=== PATIENT | male | born 1935 | race Caucasian/White ===

== ENCOUNTER → 2019-07-25 11:22 | Outpatient (CLI) | payer MEDICARE, OTHER, SELFPAY ==
[2015-07-14 17:36] VITALS: BMI 32.1
[2019-07-25 14:18] LABS: Hemoglobin 13.2 g/dL (13.0-16.5); Mean Corp Hgb Conc 32.2 g/dL (32-36); Mean Corpuscular Hgb 32.2 pg (27.0-32.0); Mean Platelet Vol. 11.8 fl (6.2-12.0); Platelet Count 193 K/mm3 (150-450); RBC Distribution Width CV 13.2 % (11.6-14.6); RBC Distribution Width SD 48.3 fl (35.1-43.9); White Blood Count 7.8 K/mm3 (4.4-11.0)
== END ==
PROVIDERS: Family Provider Family Medicine; PCP Family Medicine; Referring Provider Internal Medicine Gastroenterology; Visit Provider Internal Medicine Gastroenterology
DX: K62.5 Hemorrhage of anus and rectum (principal)
CPT/HCPCS: 36415; 85027

== ENCOUNTER 2020-09-26 09:00 | Outpatient (RCR) | payer MEDICARE, SELFPAY ==
[2015-07-14 17:36] VITALS: BMI 32.1
== END 2020-09-26 23:59 ==
LOC: IMMUN 09:00
PROVIDERS: PCP Family Medicine; Visit Provider Family Medicine
DX: Z23 Encounter for immunization (principal)
CPT/HCPCS: 0011A; 0012A

== ENCOUNTER → 2021-06-01 08:50 | Outpatient (CLI) | payer MEDICARE, SELFPAY ==
--- NOTE | 2021-06-01 09:00 | RAD_ITS ---
STUDY: X-RAY - ESOPHAGUS (BARIUM SWALLOW) WITH FLUOROSCOPY REASON FOR EXAM: Male, 85 years old. DYSPHAGIA TECHNIQUE: 23 view(s) of the esophagus were obtained following swallowing of barium. FLUOROSCOPY TIME (if supplied): (32 seconds) minutes/seconds COMPARISON: None. FINDINGS: There is no demonstrated esophageal foreign body. 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 Normal gastroesophageal junction, without a demonstrated hiatal hernia. The patient ingested a 12 mm tablet of barium. The tablet is trapped within the Zenker''s diverticulum. There is atherosclerotic calcification of the aortic arch with tortuosity of the descending aorta. Normal visualized pulmonary parenchyma. There are diffuse degenerative changes of the visualized thoracic spine. RAD/Esophagus Dual Contrast IMPRESSION: There is a 6 mm x 3.6 mm in diameter diverticulum at the origin of the esophagus along its medial aspect. The ingested 12 mm tablet of barium is trapped within the diverticulum. Electronically Signed: Joe Cast MD at 9:52 EDT , Service support ,
== END ==
PROVIDERS: PCP Family Medicine; Referring Provider Otolaryngology; Visit Provider Otolaryngology
DX: R13.10 Dysphagia, unspecified (principal)
CPT/HCPCS: 74221

== ENCOUNTER 2021-12-04 21:34 | Inpatient (IN) | payer MEDICARE, OTHER, SELFPAY ==
[2021-12-04 21:35] VITALS: BP 106/66; PULSE 103; RESP 16; TEMP 36.6; O2SAT 99; BMI 25.0
[2021-12-04 22:29] VITALS: PULSE 49; RESP 15; O2SAT 98
--- NOTE | 2021-12-04 22:56 | CT_ITS ---
We are attempting to reach an attending provider to discuss findings. An addendum with communication details will be sent when the communication is complete. STUDY: CT ABDOMEN AND PELVIS WITHOUT CONTRAST REASON FOR EXAM: Male, 86 years old. abd pain RADIATION DOSAGE (If Supplied By Facility): CTDIvol = ( 13.11 ) mGy, DLP = ( 686.80 ) mGycm TECHNIQUE: Transaxial images were obtained from the dome of the diaphragm to the symphysis pubis with oral contrast, and without intravenous contrast. Sagittal and coronal images were reconstructed. Individualized dose optimization techniques were used for this CT. COMPARISON: None. FINDINGS: Bibasilar atelectasis. Moderate coronary artery calcification. Liver is unremarkable on this nonenhanced scan. Normal gallbladder and extrahepatic biliary system. Normal spleen. Pancreas is markedly atrophic/fatty. No findings of acute pancreatitis. Normal bilateral adrenal glands. Normal size kidneys. Nonspecific perirenal stranding. No hydronephrosis or obstructing ureteral stone. Urinary bladder is unremarkable. A few small renal parapelvic cysts are incidentally noted, and require no follow-up. Stomach is filled with enteric contrast and gas. No gastric mural thickening or periduodenal inflammatory changes. Proximal small bowel loops are normal in caliber. More distal small bowel loops within the pelvis are mildly distended, and measure up to 3.8 cm in transverse diameter. These distended small bowel loops contain air-fluid levels. The terminal ileum is decompressed. Zone of transition probably lies within the right anterior-lateral pelvis with the small bowel abuts the anterior abdominal wall, suggestive of an adhesion. No small bowel volvulus is noted. The colon is normal in caliber. Scattered colonic diverticula are present without evidence for acute diverticulitis. No pneumatosis or extraluminal air is identified. No ascites. Small fat-filled inguinal hernias are present, larger on the left. There is also a small lobulated fat-filled periumbilical hernia. Abdominal aorta is calcific and is normal in caliber. No AAA. 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 Mildly prominent prostate gland measuring 5.3 cm in transverse diameter. Thoracolumbar degenerative disc disease. No lytic osseous lesion or other acute osseous abnormality. CT/Abdomen/Pel W ORAL Cont Only IMPRESSION: Findings of a low-grade/incomplete distal small bowel obstruction, with zone of transition within the right anterior pelvis. Colonic diverticulosis without evidence for acute diverticulitis. Nonstandard communication protocol initiated, level 2. Electronically Signed: Casey Dudley MD at 3:25 EDT ,
[2021-12-04] MEDS: Ondansetron 4 MG/2 ML Vial IV (23:39)
[2021-12-04] MEDS: Morphine 2 MG/ML Syringe IV (23:39)
[2021-12-04 23:43] LABS: Absolute Lymphocyte Count 1.33 X10^3/uL (0.83-4.51); Absolute Neutrophil Count 5.9 X10^3/uL (2.0-7.7); Basophil# 0.01 X10^3/uL; Basophil% 0.1 % (0-1); Eosinophil# 0.11 X10^3/uL; Eosinophils% 1.3 % (0-5); Hematocrit 45.1 % (40-54); Hemoglobin 15.1 g/dL (13.0-16.5); Lymphocyte # 1.33 X10^3/ul (0.83-4.51); Lymphocyte % 16.3 % (19-41); Mean Corp Hgb Conc 33.5 g/dL (32-36); Mean Corpuscular Hgb 32.6 pg (27.0-32.0); Mean Corpuscular Volume 97.4 fL (80-94); Mean Platelet Vol. 10.5 fl (6.2-12.0); Monocyte# 0.84 X10^3/uL; Monocyte% 10.3 % (0-10); NRBC Flagged by Analyzer 0 % (0-5); Neutrophil # 5.86 X10^3/uL (2.7-7.7); Neutrophil % 71.8 % (47-70); Platelet Count 259 K/mm3 (150-450); RBC Distribution Width CV 13.6 % (11.6-14.6); RBC Distribution Width SD 49.1 fl (35.1-43.9); Red Blood Count 4.63 M/mm3 (4.6-6.2); White Blood Count 8.2 K/mm3 (4.4-11.0)
[2021-12-04 23:55] LABS: AST(SGOT) 22 U/L (15-37); Alanine Aminotransfer ALT/SGPT 29 U/L (16-61); Albumin, Serum 3.6 g/dL (3.2-5.0); Alkaline Phosphatase 93 U/L (45-117); BUN 33 mg/dL (7-18); BUN/Creat Ratio 27.7 RATIO (10-20); Bilirubin, Direct 0.35 mg/dL (0.00-0.30); Calcium,Total 9.4 mg/dL (8.5-10.1); Chloride 105 mmol/L (98-107); Creatinine, Serum 1.19 mg/dL (0.70-1.30); EST Glomerular Filtration Rate 61 mL/min (>60); Est Glom Filt Rate - Afr Amer 74 mL/min (>60); Globulin 4.2 g/dL (2.2-4.2); Glucose 230 mg/dL (74-106); Lipase 19 U/L (73-393); Potassium 4.6 mmol/L (3.5-5.1); Protein, Total 7.8 g/dL (6.4-8.2); Sodium Level 136 mmol/L (136-145)
[2021-12-04 23:56] LABS: Anion Gap 6 (5-15)
[2021-12-05] VITALS (10 sets, daily range): BP systolic 104–134; BP diastolic 51–79; PULSE 78–87; RESP 16–18; TEMP 36.6–37.1; O2SAT 92–97; BMI 25.0
[2021-12-05] MEDS: Ondansetron 4 MG/2 ML Vial IV (01:51)
[2021-12-05] MEDS: Morphine 2 MG/ML Syringe IV (03:59)
--- NOTE | 2021-12-05 04:08 | EDS_ITS ---
HPI History of Present Illness Chief Complaint: Nausea/Vomiting/Diarrhea Narrative Narrative: Patient is 86-year-old male with history of hypertension hyperlipidemia and diabetes. He states that he felt like his stomach was off night. He states he went to bed and woke up around 4 AM Tuesday morning and had 2-3 bouts of vomiting as well as 1-2 bouts of loose stool. He states that all day Tuesday he had generalized abdominal discomfort with nausea and tried to eat in the evening and had recurrent vomiting after doing so. Secondary to this he presents to the hospital for evaluation. He denies any known sick contacts. He denies any fevers or chills [facility] Medical History (Updated 12/05/21 @ 04:[address] Breanna Bunch, DO) Coronary artery disease Diabetes Hypertension Myocardial infarct Home Medications Fish Oil 1 ea PO QHS 06/30/15 [History Last Taken Unknown] Therems-M 1 tab PO DAILY 06/30/15 [History Last Taken 07/14/15] acetaminophen [Tylenol] 650 mg PO 4X/DAY PRN PRN 06/30/15 [History Last Taken 07/14/15] ascorbic acid (vitamin C) [Vitamin C] 500 mg PO DAILY@0800 06/30/15 [History Last Taken Unknown] aspirin 81 mg PO DAILY@0800 06/30/15 [History Last Taken Unknown] atorvastatin 40 mg PO QHS 06/30/15 [History Last Taken 07/13/15] calcium carbonate 600 mg PO DAILY 06/30/15 [History Last Taken Unknown] glipizide 5 mg PO QHS 06/30/15 [History Last Taken 07/13/15] glucosamine-chondroitin 1 ea PO DAILY 06/30/15 [History Last Taken Unknown] losartan 25 mg PO QHS 06/30/15 [History Last Taken 07/13/15] metoprolol succinate 25 mg PO DAILY 06/30/15 [History Last Taken 07/14/15] vitamin E 400 unit PO DAILY 06/30/15 [History Last Taken Unknown] sennosides-docusate sodium [Stool Softener-Stimulant Laxat] 2 tab PO BID #0 tablet 07/13/15 [Rx Last Taken 07/14/15] Ferrex 150 Plus 150 mg PO DAILYCM #0 capsule 07/24/15 [Rx Last Taken Unknown] dapagliflozin [Farxiga] 5 mg PO DAILY 12/04/21 [History Last Taken Unknown] metformin 500 mg PO DAILY 12/04/21 [History Last Taken Unknown] Allergy/AdvReac Type Severity Reaction Status Date / Time Iodinated Contrast Media [CT] Allergy Hives Verified 12/04/21 21:37 Penicillins Allergy Hives Verified 12/04/21 21:37 Sulfa (Sulfonamide Allergy Itching Verified 12/04/21 21:37 Antibiotics) Surgical History (Updated 12/04/21 @ 22:33 by Vitor Laws) History of appendectomy History of bilateral knee replacement History of coronary artery stent placement Social History Smoking Status: Never smoker ROS ROS ED Constitutional Constitutional ED: Denies chills or fever(s) ENT ENT ED: Denies sore throat Cardiovascular Cardiovascular: Denies chest pain Respiratory/Chest Respiratory/Chest: Denies cough or dyspnea Gastrointestinal Gastrointestinal: Reports abdominal pain, diarrhea, nausea and vomiting Genitourinary Genitourinary ED: Denies dysuria Musculoskeletal Musculoskeletal: Denies back pain or myalgias Integumentary Denies rash Neurologic Neurologic: Denies headache(s) Hematologic/Lymphatic Hematologic/Lymphatic: Denies easy bleeding or easy bruising EXAM Physical Exam Const Vital Signs: 12/04/21 21:35 12/04/21 22:29 12/05/21 01:55 Temperature 97.8 F Temperature Source Temporal Pulse Rate 103 H 49 L 85 Respiratory Rate 16 15 18 Blood Pressure 106/66 113/63 Blood Pressure Mean 79 79 Pulse Ox 99 98 95 Oxygen Delivery Method Room Air Room Air 12/05/21 03:34 Temperature Temperature Source Pulse Rate 87 Respiratory Rate 18 Blood Pressure 134/79 H Blood Pressure Mean 97 Pulse Ox 97 Oxygen Delivery Method Room Air Positive well nourished and well developed General Appearance ED: well developed HEENT Reports dry mucous membranes Mouth ED: Yes dry mucous membranes Mouth: dry mucous membranes Eyes PERRL and EOMs intact bilaterally Neck supple Resp normal respiratory effort and clear to auscultation bilaterally Cardio regular rate and regular rhythm Rate: other Other Details: Annual pulses are +2-4 bilaterally are equal and symmetric GI GI Narrative: Abdomen is soft but slightly distended and bowel sounds are overactive. There is a reducible ventral hernia noted. There is mild increased tympany. No voluntary guarding or rigidity no pulsatile mass Palpation: soft Extremity normal to inspection Neuro oriented x3 and CN's II-XII intact bilaterally Sensorium / Orientation: alert Motor Exam: strength 5/5 throughout Psych mental status grossly normal Skin no rashes or lesions noted Skin Narrative: Skin turgor slightly increased MDM MDM MDM Narrative Medical decision making narrative: Patient presented to the ER afebrile with stable vitals. He had slight distention on his abdominal exam with a remote history of acute appendicitis requiring surgical removal. He stated he had a few loose bowel movements when symptoms began which goes against a bowel obstruction but as he is distended there is still concern for this I elected perform basic laboratory studies with a CT scan. Patient has an allergy to iodine contrast so therefore just oral contrast was given. Blood work reveals no acute findings but CT scan does show changes consistent with an incomplete small bowel obstruction with zone of transition in the right lower quadrant consistent with scar tissue from his previous appendectomy. I discussed the case with general surgery and they do not feel he needs an NG tube as he is not having persistent bouts of vomiting. At this time as he does not have a surgical abdomen they recommend admission to medicine service because of his other comorbidities. Therefore they were contacted and they agreed to accept the admission at this time. Lab Data Attestation: I reviewed the patient's lab results. Labs: Laboratory Results - last 24 hr 12/04/21 12/04/21 23:24 23:24 WBC 8.2 RBC 4.63 Hgb 15.1 Hct 45.1 MCV 97.4 H MCH 32.6 H MCHC 33.5 RDW Std Deviation 49.1 H RDW Coeff of Delvis 13.6 Plt Count 259 MPV 10.5 Immature Gran % (Auto) 0.200 Neut % (Auto) 71.8 H Lymph % (Auto) 16.3 L [place] % (Auto) 10.3 H Eos % (Auto) 1.3 Baso % (Auto) 0.1 Absolute Neuts (auto) 5.9 Absolute Lymphs (auto) 1.33 Nucleated RBC % 0 Sodium 136 Potassium 4.6 Chloride 105 Carbon Dioxide 25.0 Anion Gap 6 BUN 33 H Creatinine 1.19 Estim Creat Clear Calc 48.00 Est GFR (MDRD) Af Amer 74 Est GFR (MDRD) Non-Af 61 BUN/Creatinine Ratio 27.7 H Glucose 230 H Calcium 9.4 Total Bilirubin 1.80 H Direct Bilirubin 0.35 H AST 22 ALT 29 Alkaline Phosphatase 93 Total Protein 7.8 Albumin 3.6 Globulin 4.2 Lipase 19 L Radiography Diagnostic Testing: Clinical Impression(s) from Imaging Studies Abdomen CT 12/04/21 22:56 IMPRESSION: Findings of a low-grade/incomplete distal small bowel obstruction, with zone of transition within the right anterior pelvis. Colonic diverticulosis without evidence for acute diverticulitis. Nonstandard communication protocol initiated, level 2. Electronically Signed: Casey Dudley MD at 3:25 EDT , ADDENDUM: 12/05/21 0341 IMPRESSION: Findings of a low-grade/incomplete distal small bowel obstruction, with zone of transition within the right anterior pelvis. Colonic diverticulosis without evidence for acute diverticulitis. Nonstandard communication protocol initiated, level 2. N.B. : The above Results were Read Back by Casey Dudley MD to BREANNA BUNCH DO, and understanding confirmed on 12/05/2021 03:35:04 (ET). Electronically Signed: Casey Dudley MD at 3:25 EDT , ADDENDUM: 12/05/21 0343 Discharge Plan Dx/Rx/DC Orders Clinical Impression: Small bowel obstruction, Type II diabetes mellitus, Hypertension, Hyperlipidemia Disposition Disposition: Acute Care [facility]
[2021-12-05] MEDS: 0.9% Normal Saline 1,000 ML 125 ML IV (04:15)
--- NOTE | 2021-12-05 04:27 | HP.PCM.HOS_ITS ---
HPI - General General Date of Admission: 12/05/21 HPI Narrative VIRGINIE PATEL, is a 86 M who presents to the hospital with nausea vomiting and some diarrhea. He states that for the last 2 months he has been having intermittent issues with this however yesterday he started feeling he had an upset stomach and he threw up twice. He is had an episode of diarrhea yesterday morning but then has not had a bowel movement has not been passing any gas. In the ER he had a CT scan of his abdomen which demonstrated partial small bowel obstruction. Lab work and vital signs were all stable. [facility] Medical History (Updated 12/05/21 @ 04:[address] Breanna Asher, DO) Coronary artery disease Diabetes Hypertension Myocardial infarct Home Medications Fish Oil 1 ea PO QHS 06/30/15 [History Last Taken Unknown] Therems-M 1 tab PO DAILY 06/30/15 [History Last Taken 07/14/15] acetaminophen [Tylenol] 650 mg PO 4X/DAY PRN PRN 06/30/15 [History Last Taken 07/14/15] ascorbic acid (vitamin C) [Vitamin C] 500 mg PO DAILY@0800 06/30/15 [History Last Taken Unknown] aspirin 81 mg PO DAILY@0800 06/30/15 [History Last Taken Unknown] atorvastatin 40 mg PO QHS 06/30/15 [History Last Taken 07/13/15] calcium carbonate 600 mg PO DAILY 06/30/15 [History Last Taken Unknown] glipizide 5 mg PO QHS 06/30/15 [History Last Taken 07/13/15] glucosamine-chondroitin 1 ea PO DAILY 06/30/15 [History Last Taken Unknown] losartan 25 mg PO QHS 06/30/15 [History Last Taken 07/13/15] metoprolol succinate 25 mg PO DAILY 06/30/15 [History Last Taken 07/14/15] vitamin E 400 unit PO DAILY 06/30/15 [History Last Taken Unknown] sennosides-docusate sodium [Stool Softener-Stimulant Laxat] 2 tab PO BID #0 tablet 07/13/15 [Rx Last Taken 07/14/15] Ferrex 150 Plus 150 mg PO DAILYCM #0 capsule 07/24/15 [Rx Last Taken Unknown] dapagliflozin [Farxiga] 5 mg PO DAILY 12/04/21 [History Last Taken Unknown] metformin 500 mg PO DAILY 12/04/21 [History Last Taken Unknown] Allergy/AdvReac Type Severity Reaction Status Date / Time Iodinated Contrast Media [CT] Allergy Hives Verified 12/04/21 21:37 Penicillins Allergy Hives Verified 12/04/21 21:37 Sulfa (Sulfonamide Allergy Itching Verified 12/04/21 21:37 Antibiotics) Family History (Updated 12/05/21 @ 04:[address] Obi Dillon MD) Other Diabetes Surgical History (Updated 12/04/21 @ 22:33 by Vitor Laws) History of appendectomy History of bilateral knee replacement History of coronary artery stent placement Social History Smoking Status: Never smoker ROS Constitutional Constitutional: Denies chills, fatigue, fever(s) or malaise Eyes Eyes: Denies blurry vision ENT HEENT: Denies headache(s) or nasal discharge Cardiovascular Cardiovascular: Denies chest pain, dyspnea on exertion or syncope Respiratory/Chest Respiratory/Chest: Denies cough, shortness of breath at rest or shortness of breath with exertion Gastrointestinal Gastrointestinal: Reports diarrhea, nausea and vomiting; Denies constipation Genitourinary Genitourinary: Denies dysuria Neurologic Neurologic: Denies focal weakness, numbness or tremor(s) Psychiatric Psychiatric: Denies anxiety or depression Vital Signs Vital Signs Vital Signs: 12/04/21 21:35 12/04/21 22:29 12/05/21 01:55 Temperature 97.8 F Temperature Source Temporal Pulse Rate 103 H 49 L 85 Respiratory Rate 16 15 18 Blood Pressure 106/66 113/63 Blood Pressure Mean 79 79 Pulse Ox 99 98 95 Oxygen Delivery Method Room Air Room Air 12/05/21 03:34 12/05/21 04:17 Temperature 98.2 F Temperature Source Temporal Pulse Rate 87 87 Respiratory Rate 18 18 Blood Pressure 134/79 H 134/79 H Blood Pressure Mean 97 97 Pulse Ox 97 97 Oxygen Delivery Method Room Air Room Air Weight Weight: 185 lb Body Mass Index (BMI) 25.0 Physical Exam Const alert and oriented x3 General Appearance: cooperative HEENT normocephalic Mouth: dry mucous membranes Eyes PERRL, EOMs intact bilaterally and conjunctivae normal Neck supple and no JVD Resp normal respiratory effort, no retractions, no use of accessory muscles and clear to auscultation bilaterally Auscultation: Negative for crackles, rales, rhonchi or wheezes Cardio regular rate, regular rhythm, S1 normal heart sound, S2 normal heart sound and no murmurs GI soft to palpation; Negative for hepatosplenomegaly Inspection: abdominal distention Palpation: tender Extremity no clubbing, cyanosis or edema Skin no rashes or lesions noted Neuro no focal motor deficits and no sensory deficits noted Psych affect normal Appearance: appropriate Results Lab / Micro Data Result Diagrams: 12/04/21 23:24 12/04/21 23:24 Labs: Laboratory Results - last 24 hr 12/04/21 23:24: Sodium 136, Potassium 4.6, Chloride 105, Carbon Dioxide 25.0, Anion Gap 6, BUN 33 H, Creatinine 1.19, Estim Creat Clear Calc 48.00, Est GFR (MDRD) Af Amer 74, Est GFR (MDRD) Non-Af 61, BUN/Creatinine Ratio 27.7 H, Glucose 230 H, Calcium 9.4, Total Bilirubin 1.80 H, Direct Bilirubin 0.35 H, AST 22, ALT 29, Alkaline Phosphatase 93, Total Protein 7.8, Albumin 3.6, Globulin 4.2, Lipase 19 L 12/04/21 23:24: WBC 8.2, RBC 4.63, Hgb 15.1, Hct 45.1, MCV 97.4 H, MCH 32.6 H, MCHC 33.5, RDW Std Deviation 49.1 H, RDW Coeff of Delvis 13.6, Plt Count 259, MPV 10.5, Immature Gran % (Auto) 0.200, Neut % (Auto) 71.8 H, Lymph % (Auto) 16.3 L, [place] % (Auto) 10.3 H, Eos % (Auto) 1.3, Baso % (Auto) 0.1, Absolute Neuts (auto) 5.9, Absolute Lymphs (auto) 1.33, Nucleated RBC % [address] 12/04/21 22:56 IMPRESSION: Findings of a low-grade/incomplete distal small bowel obstruction, with zone of transition within the right anterior pelvis. Colonic diverticulosis without evidence for acute diverticulitis. Nonstandard communication protocol initiated, level 2. Electronically Signed: Casey Dudley MD at 3:25 EDT , ADDENDUM: 12/05/21 0341 IMPRESSION: Findings of a low-grade/incomplete distal small bowel obstruction, with zone of transition within the right anterior pelvis. Colonic diverticulosis without evidence for acute diverticulitis. Nonstandard communication protocol initiated, level 2. N.B. : The above Results were Read Back by Casey Dudley MD to BREANNA ASHER DO, and understanding confirmed on 12/05/2021 03:35:04 (ET). Electronically Signed: Casey Dudley MD at 3:25 EDT , ADDENDUM: 12/05/21 0343 Assessment & Plan Assessment/Plan (1) Small bowel obstruction: PLAN: 1. Small bowel obstruction ? We will make him n.p.o. ? Continue IV fluids ? We will consult surgery for management ? Morphine for pain as well as Zofran and Compazine for nausea ? CT did demonstrate a decent amount of stomach content therefore if he does have any episodes of emesis while here may need an NG tube placed 2. HTN/HLD ? Blood pressures ? Can continue with his home blood pressure medications even though he is n.p.o. ? We will hold his Lipitor and his while n.p.o. 3. DM2 ? We will hold all of his oral blood sugar medications ? Accu-Cheks AC at bedtime ? We will place him on sliding scale insulin every 6 hours secondary to his being n.p.o. That will make adjustments as necessary 4. Iron deficiency anemia ? Stable ? Will hold his iron replacement while n.p.o. from his small bowel patient DVT: SCDs Charges/Coding Visit Charges Inpatient E&M: 66131 Init Hosp L2
[2021-12-05] MEDS: 0.9% Normal Saline 1,000 ML 100 ML IV ×3 (06:20→22:28)
[2021-12-05] MEDS: Morphine 4 MG/ML Syringe IV (06:21)
[2021-12-05] MEDS: proCHLORPERazine 10 MG/2 ML Vial 5 MG IV (06:21)
[2021-12-05 06:50] LABS: Bedside Glucose 188 mg/dL (74-106)
--- NOTE | 2021-12-05 07:32 | PN.HOSP_ITS ---
Subjective Subjective Patient has past small amount of gas/flatus. No bowel movement for more than 24 hours. No nausea or vomiting. No fever. Patient feels abdominal distention. Objective Data Objective Data Vital Signs: Vital Signs Temp Pulse Resp BP Pulse Ox 98.2 F 87 16 118/51 L 92 12/05/21 05:17 12/05/21 05:17 12/05/21 05:31 12/05/21 05:17 12/05/21 05:17 Oxygen Delivery Method Room Air Weight: 184 lb 8 oz Body Mass Index (BMI) 25.0 Intake & Output: Intake and Output for Last 24 Hours 12/03/21 12/04/21 12/05/21 23:59 23:59 23:59 Intake Total 695.83 / 695.83 Balance 695.83 / 695.83 Lab / Micro Data Result Diagrams: 12/05/21 06:57 12/05/21 06:57 Labs: Laboratory Results - last 24 hr 12/04/21 23:24: Sodium 136, Potassium 4.6, Chloride 105, Carbon Dioxide 25.0, Anion Gap 6, BUN 33 H, Creatinine 1.19, Estim Creat Clear Calc 48.00, Est GFR (MDRD) Af Amer 74, Est GFR (MDRD) Non-Af 61, BUN/Creatinine Ratio 27.7 H, Glucose 230 H, Calcium 9.4, Total Bilirubin 1.80 H, Direct Bilirubin 0.35 H, AST 22, ALT 29, Alkaline Phosphatase 93, Total Protein 7.8, Albumin 3.6, Globulin 4.2, Lipase 19 L 12/04/21 23:24: WBC 8.2, RBC 4.63, Hgb 15.1, Hct 45.1, MCV 97.4 H, MCH 32.6 H, MCHC 33.5, RDW Std Deviation 49.1 H, RDW Coeff of Delvis 13.6, Plt Count 259, MPV 10.5, Immature Gran % (Auto) 0.200, Neut % (Auto) 71.8 H, Lymph % (Auto) 16.3 L, [place] % (Auto) 10.3 H, Eos % (Auto) 1.3, Baso % (Auto) 0.1, Absolute Neuts (auto) 5.9, Absolute Lymphs (auto) 1.33, Nucleated RBC % 0 12/05/21 06:42: POC Glucose 188 H Radiography Diagnostic Testing: Radiology Impression Abdomen CT 12/04/21 22:56 IMPRESSION: Findings of a low-grade/incomplete distal small bowel obstruction, with zone of transition within the right anterior pelvis. Colonic diverticulosis without evidence for acute diverticulitis. Assessment & Plan Assessment/Plan (1) Small bowel obstruction: PLAN: 86-year-old male admitted with low flatus/bowel movement for more than 24 hours prior to admission. Prior to that he was having nausea vomiting and intermittent diarrhea and upset stomach for 2 months 1. Distal incomplete small bowel obstruction: We will keep the patient NPO. General surgery is consulted. Continue IV fluid. Patient has passed flatus but has not passed bowel movement yet. CT abdomen Reviewed and agree with the report. Stomach and small bowel distended. Zone of transition within the right anterior pelvis. Colonic diverticulosis without evidence for acute diverticulitis. 2. Hypertension and dyslipidemia: Blood pressure normal range. Hold oral antihypertensive medications. Hold Lipitor ? 3. DM2 with mild hyperglycemia: Accu-Chek every 6 hourly while patient is n.p.o. and before meals and at bedtime only and is allowed, covered with Humalog sliding scale. 4. Iron deficiency anemia: Hemoglobin 12.4. DVT: SCDs Charges/Coding Visit Charges Inpatient E&M: 17647 Subs Hosp L2
[2021-12-05 07:34] LABS: Absolute Lymphocyte Count 1.65 X10^3/uL (0.83-4.51); Absolute Neutrophil Count 3.7 X10^3/uL (2.0-7.7); Basophil# 0.01 X10^3/uL; Basophil% 0.2 % (0-1); Eosinophil# 0.14 X10^3/uL; Eosinophils% 2.3 % (0-5); Hematocrit 37.2 % (40-54); Hemoglobin 12.4 g/dL (13.0-16.5); Lymphocyte # 1.65 X10^3/ul (0.83-4.51); Lymphocyte % 26.6 % (19-41); Mean Corp Hgb Conc 33.3 g/dL (32-36); Mean Corpuscular Hgb 32.6 pg (27.0-32.0); Mean Corpuscular Volume 97.9 fL (80-94); Mean Platelet Vol. 10.3 fl (6.2-12.0); Monocyte# 0.73 X10^3/uL; Monocyte% 11.8 % (0-10); NRBC Flagged by Analyzer 0 % (0-5); Neutrophil # 3.66 X10^3/uL (2.7-7.7); Neutrophil % 58.9 % (47-70); Platelet Count 193 K/mm3 (150-450); RBC Distribution Width CV 13.8 % (11.6-14.6); RBC Distribution Width SD 49.8 fl (35.1-43.9); White Blood Count 6.2 K/mm3 (4.4-11.0)
[2021-12-05 07:58] LABS: Anion Gap 6 (5-15); BUN 29 mg/dL (7-18); BUN/Creat Ratio 30.4 RATIO (10-20); Calcium,Total 8.3 mg/dL (8.5-10.1); Chloride 108 mmol/L (98-107); Creatinine, Serum 0.96 mg/dL (0.70-1.30); EST Glomerular Filtration Rate 79 mL/min (>60); Est Glom Filt Rate - Afr Amer 96 mL/min (>60); Glucose 198 mg/dL (74-106); Sodium Level 138 mmol/L (136-145)
[2021-12-05] MEDS: Metoprolol(XL)Succ 25 MG Tablet PO (09:59)
--- NOTE | 2021-12-05 11:01 | CON.PCM.SX_ITS ---
Assessment & Plan Assessment/Plan (1) Small bowel obstruction: PLAN: Believe the patient's overall condition has been improving. At the present time I do not feel that he is going to need an urgent surgery and I believe it is okay for him to chew on ice chips at this time. In addition he can have hard candy and chew gum if he has some. HPI Consult Data Date of Consult: 12/05/21 HPI Narrative HPI Narrative: VIRGINIE PATEL, is a 86 M who presents to the hospital with nausea vomiting and some diarrhea. He states that for the last 2 months he has been having intermittent issues with this however yesterday he started feeling he had an upset stomach and he threw up twice. He is had an episode of diarrhea yesterday morning but then has not had a bowel movement has not been passing any gas. In the ER he had a CT scan of his abdomen which demonstrated partial small bowel obstruction. Lab work and vital signs were all stable. Since being on the floor he states that he does feel better and he is passing flatus FOR[facility]LY [facility] Medical History Coronary artery disease Diabetes DVT (deep venous thrombosis) Hypertension Myocardial infarct Osteoporosis Home Medications Fish Oil 1 ea PO QHS 06/30/15 [History Last Taken Unknown] acetaminophen [Tylenol] 650 mg PO 4X/DAY PRN PRN 06/30/15 [History Last Taken 07/14/15] ascorbic acid (vitamin C) [Vitamin C] 500 mg PO DAILY@0800 06/30/15 [History Last Taken Unknown] aspirin 81 mg PO DAILY@0800 06/30/15 [History Last Taken Unknown] atorvastatin 40 mg PO QHS 06/30/15 [History Last Taken 07/13/15] calcium carbonate 600 mg PO DAILY 06/30/15 [History Last Taken Unknown] glipizide 10 mg PO DAILY 06/30/15 [History Last Taken 07/13/15] glucosamine-chondroitin 1 ea PO DAILY 06/30/15 [History Last Taken Unknown] losartan 25 mg PO QHS 06/30/15 [History Last Taken 07/13/15] metoprolol succinate 25 mg PO DAILY 06/30/15 [History Last Taken 07/14/15] vitamin E 400 unit PO DAILY 06/30/15 [History Last Taken Unknown] Ferrex 150 Plus 150 mg PO DAILYCM #0 capsule 07/24/15 [Rx Last Taken Unknown] metformin 500 mg PO BID 12/04/21 [History Last Taken Unknown] dulaglutide [Trulicity] 0.75 mg SUBCUT QWEEK 12/05/21 [History Last Taken Unknown] Allergy/AdvReac Type Severity Reaction Status Date / Time Iodinated Contrast Media [CT] Allergy Hives Verified 12/04/21 21:37 Penicillins Allergy Hives Verified 12/04/21 21:37 Sulfa (Sulfonamide Allergy Itching Verified 12/04/21 21:37 Antibiotics) Family History Other Diabetes Surgical History History of appendectomy History of bilateral knee replacement History of coronary artery stent placement Social History Smoking Status: Never smoker ROS Constitutional Constitutional: Denies chills, fatigue or fever(s) Cardiovascular Cardiovascular: Denies chest pain or dyspnea Respiratory/Chest Respiratory/Chest: Denies shortness of breath at rest Gastrointestinal Gastrointestinal: Reports diarrhea, nausea and vomiting Physical Exam Const alert, oriented x3 and no apparent distress General Appearance: cooperative HEENT normocephalic and head/scalp atraumatic Eyes PERRL and EOMs intact bilaterally Resp normal respiratory effort and clear to auscultation bilaterally Cardio Rate: regular rate Rhythm: regular rhythm GI soft to palpation and non-tender Inspection: abdominal distention Lab / Micro Data Result Diagrams: 12/05/21 06:57 12/05/21 06:57 Labs: Laboratory Results - last 24 hr 12/04/21 23:24: Sodium 136, Potassium 4.6, Chloride 105, Carbon Dioxide 25.0, Anion Gap 6, BUN 33 H, Creatinine 1.19, Estim Creat Clear Calc 48.00, Est GFR (MDRD) Af Amer 74, Est GFR (MDRD) Non-Af 61, BUN/Creatinine Ratio 27.7 H, Glucose 230 H, Calcium 9.4, Total Bilirubin 1.80 H, Direct Bilirubin 0.35 H, AST 22, ALT 29, Alkaline Phosphatase 93, Total Protein 7.8, Albumin 3.6, Globulin 4.2, Lipase 19 L 12/04/21 23:24: WBC 8.2, RBC 4.63, Hgb 15.1, Hct 45.1, MCV 97.4 H, MCH 32.6 H, MCHC 33.5, RDW Std Deviation 49.1 H, RDW Coeff of Delvis 13.6, Plt Count 259, MPV 10.5, Immature Gran % (Auto) 0.200, Neut % (Auto) 71.8 H, Lymph % (Auto) 16.3 L, [place] % (Auto) 10.3 H, Eos % (Auto) 1.3, Baso % (Auto) 0.1, Absolute Neuts (auto) 5.9, Absolute Lymphs (auto) 1.33, Nucleated RBC % 0 12/05/21 06:42: POC Glucose 188 H 12/05/21 06:57: WBC 6.2, RBC 3.80 L, Hgb 12.4 L, Hct 37.2 L, MCV 97.9 H, MCH 32.6 H, MCHC 33.3, RDW Std Deviation 49.8 H, RDW Coeff of Delvis 13.8, Plt Count 193, MPV 10.3, Immature Gran % (Auto) 0.200, Neut % (Auto) 58.9, Lymph % (Auto) 26.6, [place] % (Auto) 11.8 H, Eos % (Auto) 2.3, Baso % (Auto) 0.2, Absolute Neuts (auto) 3.7, Absolute Lymphs (auto) 1.65, Nucleated RBC % 0 12/05/21 06:57: Sodium 138, Potassium 4.0, Chloride 108 H, Carbon Dioxide 24.0, Anion Gap 6, BUN 29 H, Creatinine 0.96, Estim Creat Clear Calc 59.50, Est GFR (MDRD) Af Amer 96, Est GFR (MDRD) Non-Af 79, BUN/Creatinine Ratio 30.4 H, Glucose 198 H, Calcium 8.3 L Radiology Impression Abdomen CT 12/04/21 22:56 IMPRESSION: Findings of a low-grade/incomplete distal small bowel obstruction, with zone of transition within the right anterior pelvis. Colonic diverticulosis without evidence for acute diverticulitis. Nonstandard communication protocol initiated, level 2. Electronically Signed: Casey Dudley MD at 3:25 EDT , ADDENDUM: 12/05/21 0341 IMPRESSION: Findings of a low-grade/incomplete distal small bowel obstruction, with zone of transition within the right anterior pelvis. Colonic diverticulosis without evidence for acute diverticulitis. Nonstandard communication protocol initiated, level 2. N.B. : The above Results were Read Back by Casey Dudley MD to BREANNA ASHER DO, and understanding confirmed on 12/05/2021 03:35:04 (ET). Electronically Signed: Casey Dudley MD at 3:25 EDT , ADDENDUM: 12/05/21 [id number]
[2021-12-05 11:11] LABS: Bedside Glucose 170 mg/dL (74-106)
--- NOTE | 2021-12-05 15:30 | CASEMGMT ---
RN CM MANAGER LAUNDRY CM to room to meet with patient for initial transition planning/care coordination assessment. RN BETTIE introduced self and role at [facility].? Pt voices understanding and consents to assessment at this time.? Pt resting in bed in no distress at this time.? Pt is A/O at this time and answers all questions appropriately.?? Care providers, pharmacy, and demographics verified/updated at this time. PCP: KATIE Borden @ [facility] Specialists: [employer] [facility] @ [facility] in [place]--had 1st appt last week. Sees GI surgeon @ [facility]. Preferred Pharmacy: [facility] Insurance: [employer], [employer] Prescription Benefit:? Yes, [employer] LNOK: sonYoung Living Arrangements: Lives alone in 2-story home w/5 steps to enter. Bedroom on 2nd floor. Bathroom on both floors. Independent w/ADL's and IADL's. Pt states does well w/the stairs. Son lives approx 10 min away and is supportive. Transportation: Pt states drives self and states no transportation concerns at this time.? Son will take him home @ d/c DME: ?Has a functioning glucometer w/supplies. Has a walker available, but does not use. Denies need for further DME HHC/SNF: Hx TCU in 2015 after knee surgery and HHC. Denies need for HHC at this time and no needs identified. Pt wishes to return home and states has no concerns with going home at time of discharge.? ? Pt voices no further concerns/needs at this time.? Advised pt to ask for CM or nurse if any further questions/concerns/needs arise.? Voices understanding. PLAN: ?Home w/support of son and discharge plans in place. Sharon GUEVARA RN, CM
[2021-12-05 16:45] LABS: Bedside Glucose 143 mg/dL (74-106)
[2021-12-05] MEDS: Insulin Lispro 100 UNIT/ML INSULN.PEN SC (22:25)
[2021-12-05] MEDS: Losartan Potassium 25 MG Tablet PO (22:25)
[2021-12-05 22:51] LABS: Bedside Glucose 154 mg/dL (74-106)
[2021-12-06 03:37] VITALS: BP 126/59; PULSE 73; RESP 16; TEMP 36.8; O2SAT 96
[2021-12-06 06:40] LABS: Bedside Glucose 138 mg/dL (74-106)
[2021-12-06 08:29] VITALS: BP 124/55; PULSE 73; RESP 18; TEMP 36.9; O2SAT 92
[2021-12-06 08:32] VITALS: PULSE 73
[2021-12-06] MEDS: 0.9% Normal Saline 1,000 ML 100 ML IV (08:32)
[2021-12-06] MEDS: Metoprolol(XL)Succ 25 MG Tablet PO (08:32)
--- NOTE | 2021-12-06 08:56 | PCM.PN.SRG ---
Subjective Subjective Not complaining of any abdominal pain. Patient states that he has had significant flatus this morning. Objective Data Objective Data Abdomen is soft nontender nondistended Vital Signs: Vital Signs Temp Pulse Resp BP Pulse Ox 98.5 F 73 18 124/55 H 92 12/06/21 08:29 12/06/21 08:32 12/06/21 08:29 12/06/21 08:29 12/06/21 08:29 Oxygen Delivery Method Room Air Weight: 184 lb 8.007 oz Body Mass Index (BMI) 25.0 Intake & Output: Intake and Output for Last 24 Hours 12/04/21 12/05/21 12/06/21 23:59 23:59 23:59 Intake Total 2489.16 / 2489.16 1020 / 1020 Balance 2489.16 / 2489.16 1020 / 1020 Lab / Micro Data Result Diagrams: 12/05/21 06:57 12/05/21 06:57 Labs: Laboratory Results - last 24 hr 12/05/21 11:08: POC Glucose 170 H 12/05/21 16:30: POC Glucose 143 H 12/05/21 22:22: POC Glucose 154 H 12/06/21 06:30: POC Glucose 138 H Assessment & Plan Assessment/Plan (1) Small bowel obstruction: PLAN: Okay to advance diet. No surgical intervention is planned at this time.
[2021-12-06] MEDS: Bisacodyl 5 MG Tablet PO ×2 (09:45→14:24)
--- NOTE | 2021-12-06 10:50 | PCM.PN.HOSP ---
Subjective Subjective Follow-up for partial small bowel obstruction/ileus Patient is passing gas but not had bowel movement. Abdomen soft. No abdominal pain Objective Data Objective Data Vital Signs: Vital Signs Temp Pulse Resp BP Pulse Ox 98.5 F 73 18 124/55 H 92 12/06/21 08:29 12/06/21 08:32 12/06/21 08:29 12/06/21 08:29 12/06/21 08:29 Oxygen Delivery Method Room Air Weight: 184 lb 8.007 oz Body Mass Index (BMI) 25.0 Intake & Output: Intake and Output for Last 24 Hours 12/04/21 12/05/21 12/06/21 23:59 23:59 23:59 Intake Total 2489.16 / 2489.16 1020 / 1020 Balance 2489.16 / 2489.16 1020 / 1020 Lab / Micro Data Result Diagrams: 12/05/21 06:57 12/05/21 06:57 Labs: Laboratory Results - last 24 hr 12/05/21 11:08: POC Glucose 170 H 12/05/21 16:30: POC Glucose 143 H 12/05/21 22:22: POC Glucose 154 H 12/06/21 06:30: POC Glucose 138 H Physical Exam Narrative General: Alert, Oriented x3, Cooperative HEENT: Atraumatic, PERRLA, EOMI, Normocephalic Oral: No Gingival or Mucosal Lesions/ Ulcerations Neck: Supple, No JVD, Negative Carotid Bruits Lungs: Air entry diminished in bilateral lung bases. No crepitation/rhonchi Cardiovascular: Regular rate, Regular Rhythm, Normal S1, Normal S2, No murmurs Abdomen: Bowel Sounds high-pitched, gurgling sound seems fluid in the bowel. Soft, Non Tender, Non-Distended : No renal angle tenderness. No suprapubic tenderness. Extremities: No edema, Capillary Refill Less than 3 Seconds Skin: No rashes, No breakdown Musculoskeletal: No Tenderness to Palpation of Joints or Extremities Neurological: Cranial nerves II-XII grossly intact, DTR 2+/4 and Symmetrical, Neuro grossly intact Psych/Mental Status: Normal Affect, Appropriate Assessment & Plan Assessment/Plan (1) Small bowel obstruction: PLAN: 86-year-old male admitted with low flatus/bowel movement for more than 24 hours prior to admission. Prior to that he was having nausea vomiting and intermittent diarrhea and upset stomach for 2 months 1. Distal incomplete small bowel obstruction: We will keep the patient NPO. General surgery is consulted. Continue IV fluid. Patient has passed flatus but has not passed bowel movement yet. CT abdomen Reviewed and agree with the report. Stomach and small bowel distended. Zone of transition within the right anterior pelvis. Colonic diverticulosis without evidence for acute diverticulitis. 12/06: I called and discussed with Dr. Boateng and agreed for Dulcolax 5 mg p.o. Patient has distal incomplete small bowel obstruction and bowel sounds are present along with flatness. May be ileus. 2. Hypertension and dyslipidemia: Blood pressure normal range. Hold oral antihypertensive medications. Hold Lipitor ? 3. DM2 with mild hyperglycemia: Accu-Chek every 6 hourly while patient is n.p.o. and before meals and at bedtime only and is allowed, covered with Humalog sliding scale. Glucose in acceptable limit 4. Iron deficiency anemia: Hemoglobin 12.4. DVT: SCDs Charges/Coding Visit Charges Inpatient E&M: 97887 Subs Hosp L2
[2021-12-06 11:18] LABS: Absolute Lymphocyte Count 1.69 X10^3/uL (0.83-4.51); Absolute Neutrophil Count 5.5 X10^3/uL (2.0-7.7); Basophil# 0.01 X10^3/uL; Basophil% 0.1 % (0-1); Eosinophil# 0.09 X10^3/uL; Eosinophils% 1.1 % (0-5); Hematocrit 38.5 % (40-54); Hemoglobin 12.7 g/dL (13.0-16.5); Lymphocyte # 1.69 X10^3/ul (0.83-4.51); Lymphocyte % 20.8 % (19-41); Mean Corpuscular Hgb 32.8 pg (27.0-32.0); Mean Corpuscular Volume 99.5 fL (80-94); Mean Platelet Vol. 10.3 fl (6.2-12.0); Monocyte# 0.85 X10^3/uL; Monocyte% 10.5 % (0-10); NRBC Flagged by Analyzer 0 % (0-5); Neutrophil # 5.46 X10^3/uL (2.7-7.7); Neutrophil % 67.3 % (47-70); Platelet Count 186 K/mm3 (150-450); RBC Distribution Width CV 13.8 % (11.6-14.6); RBC Distribution Width SD 50.3 fl (35.1-43.9); Red Blood Count 3.87 M/mm3 (4.6-6.2); White Blood Count 8.1 K/mm3 (4.4-11.0)
[2021-12-06 11:31] LABS: Anion Gap 5 (5-15); BUN 18 mg/dL (7-18); BUN/Creat Ratio 20.1 RATIO (10-20); Calcium,Total 8.3 mg/dL (8.5-10.1); Chloride 113 mmol/L (98-107); Creatinine, Serum 0.89 mg/dL (0.70-1.30); EST Glomerular Filtration Rate 85 mL/min (>60); Est Glom Filt Rate - Afr Amer 103 mL/min (>60); Estimated Creatinine Clearance 64.18 ml/min; Glucose 185 mg/dL (74-106); Magnesium 1.8 mg/dL (1.6-2.6); Phosphorus 2.1 mg/dL (2.5-4.9); Potassium 3.9 mmol/L (3.5-5.1); Sodium Level 139 mmol/L (136-145)
[2021-12-06] MEDS: Insulin Lispro 100 UNIT/ML INSULN.PEN SC ×3 (12:24→21:30)
[2021-12-06 12:41] LABS: Bedside Glucose 208 mg/dL (74-106)
[2021-12-06 14:27] VITALS: BP 118/59; PULSE 81; RESP 18; TEMP 36.7; O2SAT 93
[2021-12-06 16:50] LABS: Bedside Glucose 160 mg/dL (74-106)
[2021-12-06 20:30] VITALS: BP 120/58; PULSE 72; RESP 16; TEMP 37.1; O2SAT 98
[2021-12-06] MEDS: Losartan Potassium 25 MG Tablet PO (20:31)
[2021-12-06 22:06] LABS: Bedside Glucose 211 mg/dL (74-106)
[2021-12-07 02:25] VITALS: BP 130/60; PULSE 77; RESP 16; TEMP 36.5; O2SAT 97
[2021-12-07 06:24] LABS: Absolute Neutrophil Count 5.1 X10^3/uL (2.0-7.7); Basophil# 0.01 X10^3/uL; Basophil% 0.1 % (0-1); Eosinophil# 0.11 X10^3/uL; Eosinophils% 1.3 % (0-5); Hemoglobin 12.3 g/dL (13.0-16.5); Lymphocyte % 27.3 % (19-41); Mean Corp Hgb Conc 33.2 g/dL (32-36); Mean Corpuscular Hgb 32.6 pg (27.0-32.0); Mean Corpuscular Volume 98.1 fL (80-94); Mean Platelet Vol. 10.8 fl (6.2-12.0); Monocyte# 0.87 X10^3/uL; Monocyte% 10.3 % (0-10); NRBC Flagged by Analyzer 0 % (0-5); Neutrophil % 60.5 % (47-70); Platelet Count 185 K/mm3 (150-450); RBC Distribution Width CV 13.4 % (11.6-14.6); RBC Distribution Width SD 48.8 fl (35.1-43.9); Red Blood Count 3.77 M/mm3 (4.6-6.2); White Blood Count 8.4 K/mm3 (4.4-11.0)
[2021-12-07] MEDS: Insulin Lispro 100 UNIT/ML INSULN.PEN SC ×2 (06:27→12:11)
[2021-12-07 06:36] LABS: Bedside Glucose 167 mg/dL (74-106)
[2021-12-07 06:49] LABS: Anion Gap 7 (5-15); BUN 13 mg/dL (7-18); BUN/Creat Ratio 15.5 RATIO (10-20); Calcium,Total 8.2 mg/dL (8.5-10.1); Chloride 110 mmol/L (98-107); Creatinine, Serum 0.84 mg/dL (0.70-1.30); EST Glomerular Filtration Rate 92 mL/min (>60); Est Glom Filt Rate - Afr Amer 112 mL/min (>60); Glucose 160 mg/dL (74-106); Potassium 3.6 mmol/L (3.5-5.1); Sodium Level 140 mmol/L (136-145)
[2021-12-07] MEDS: Glucerna Shake 120 ML LIQUID PO ×2 (08:20→12:10)
[2021-12-07 08:25] VITALS: BP 108/66; PULSE 65; RESP 16; TEMP 36.5; O2SAT 96
[2021-12-07 09:09] VITALS: PULSE 77
[2021-12-07] MEDS: Metoprolol(XL)Succ 25 MG Tablet PO (09:09)
--- NOTE | 2021-12-07 10:44 | PCM.PN.SRG ---
Subjective Subjective Passing flatus no abdominal pain Objective Data Objective Data Vital Signs: Vital Signs Temp Pulse Resp BP Pulse Ox 97.7 F L 77 16 108/66 96 12/07/21 08:25 12/07/21 09:09 12/07/21 08:25 12/07/21 08:25 12/07/21 08:25 Oxygen Delivery Method Room Air Weight: 184 lb 8.007 oz Body Mass Index (BMI) 25.0 Intake & Output: Intake and Output for Last 24 Hours 12/05/21 12/06/21 12/07/21 23:59 23:59 23:59 Intake Total 2489.16 / 2489.16 2004 Balance 2489.16 / 2489.16 2004 Lab / Micro Data Result Diagrams: 12/07/21 05:25 12/07/21 05:25 Labs: Laboratory Results - last 24 hr 12/06/21 11:00: WBC 8.1, RBC 3.87 L, Hgb 12.7 L, Hct 38.5 L, MCV 99.5 H, MCH 32.8 H, MCHC 33.0, RDW Std Deviation 50.3 H, RDW Coeff of Delvis 13.8, Plt Count 186, MPV 10.3, Immature Gran % (Auto) 0.200, Neut % (Auto) 67.3, Lymph % (Auto) 20.8, [place] % (Auto) 10.5 H, Eos % (Auto) 1.1, Baso % (Auto) 0.1, Absolute Neuts (auto) 5.5, Absolute Lymphs (auto) 1.69, Nucleated RBC % 0 12/06/21 11:00: Sodium 139, Potassium 3.9, Chloride 113 H, Carbon Dioxide 21.0, Anion Gap 5, BUN 18, Creatinine 0.89, Estim Creat Clear Calc 64.18, Est GFR (MDRD) Af Amer 103, Est GFR (MDRD) Non-Af 85, BUN/Creatinine Ratio 20.1 H, Glucose 185 H, Calcium 8.3 L, Phosphorus 2.1 L, Magnesium 1.8 12/06/21 12:20: POC Glucose 208 H 12/06/21 16:36: POC Glucose 160 H 12/06/21 21:29: POC Glucose 211 H 12/07/21 05:25: WBC 8.4, RBC 3.77 L, Hgb 12.3 L, Hct 37.0 L, MCV 98.1 H, MCH 32.6 H, MCHC 33.2, RDW Std Deviation 48.8 H, RDW Coeff of Delvis 13.4, Plt Count 185, MPV 10.8, Immature Gran % (Auto) 0.500, Neut % (Auto) 60.5, Lymph % (Auto) 27.3, [place] % (Auto) 10.3 H, Eos % (Auto) 1.3, Baso % (Auto) 0.1, Absolute Neuts (auto) 5.1, Absolute Lymphs (auto) 2.30, Nucleated RBC % 0 12/07/21 05:25: Sodium 140, Potassium 3.6, Chloride 110 H, Carbon Dioxide 23.0, Anion Gap 7, BUN 13, Creatinine 0.84, Estim Creat Clear Calc 68.00, Est GFR (MDRD) Af Amer 112, Est GFR (MDRD) Non-Af 92, BUN/Creatinine Ratio 15.5, Glucose 160 H, Calcium 8.2 L 12/07/21 06:26: POC Glucose 167 H Assessment & Plan Assessment/Plan (1) Small bowel obstruction: PLAN: We will follow-up with the patient in the office.
[2021-12-07 11:15] LABS: Bedside Glucose 221 mg/dL (74-106)
--- NOTE | 2021-12-07 12:37 | PCM.DC ---
Discharge Instructions Diet Discharge Diet: 2000 Calorie Control Diet Dressing / Incision Call your doctor if you observe: - (worsening abdominal pain. abdominal distention (tympanic). intractable nausea and vomiting. ) Follow Up Care Test Results: Test results from this visit will be discussed in further detail at your follow-up appointment, if applicable. Discharge Plan Admission Admit Date/Time: 12/05/21 04:24 Primary Reason for Your Visit: small bowel obstruction. Attending Provider: Eddi Rust Primary Care Provider: Madalyn Borden Consulting Providers: Miguel Angel Boateng Discharge Orders/Prescriptions Prescriptions: New polyethylene glycol 3350 [Miralax] 17 gram/dose powder 17 g PO DAILY PRN (Reason: constipation) Qty: 119 RF: 0 Continued losartan 50 MG tablet 25 mg PO QHS RF: 0 atorvastatin 40 MG tablet 40 mg PO QHS RF: 0 acetaminophen [Tylenol] 325 MG tablet 650 mg PO 4X/DAY PRN PRN (Reason: Pain) RF: 0 aspirin 81 MG tablet 81 mg PO DAILY@0800 RF: 0 calcium carbonate 600 MG tablet 600 mg PO DAILY RF: 0 ascorbic acid (vitamin C) [Vitamin C] 500 MG tablet 500 mg PO DAILY@0800 RF: 0 glipizide 2.5 MG tablet extended release 24hr 10 mg PO DAILY RF: 0 metoprolol succinate 25 MG tablet 25 mg PO DAILY RF: 0 glucosamine-chondroitin 1 EACH capsule 1 ea PO DAILY RF: 0 vitamin E 400 UNIT capsule 400 unit PO DAILY RF: 0 Fish Oil 1 EACH capsule 1 ea PO QHS RF: 0 Ferrex 150 Plus 150 MG capsule 150 mg PO DAILYCM Qty: 0 RF: 0 metformin 500 mg tablet extended release 24 hr 500 mg PO BID RF: 0 Trulicity 0.75 mg/0.5 mL pen injector 0.75 mg SUBCUT QWEEK RF: 0 Referrals / Follow Up: Madalyn Borden DO [Primary Care Provider] - Within 2 Weeks Miguel Angel Boateng MD [STAFF PHYSICIAN] - Within 1 Month Disposition Disposition (needs filled in before D/C Order can be placed): Home, Self Care
--- NOTE | 2021-12-07 12:41 | PCM.DC.SUM ---
Providers Date of Admission: 12/05/21 Primary Care Physician: Dr. Madalyn Borden, DO Consultations 12/05/21 05:34 Consult: General Surgery Routine Consulting Provider: Miguel Angel Boateng Reason for Consult: SBO EMERGENT Consult: No MD Notified: Yes Date Notified: 12/05/21 Time Notified: 06:34 Method of Notification: ED Physician Initiated Comments:: contacted Dr Boateng by phone. he was already aware Reason For Visit: SBO Diagnosis Discharge Diagnosis (1) Small bowel obstruction: Status: Acute Code(s): K56.609 - Unspecified intestinal obstruction, unspecified as to partial versus complete obstruction Medications at Discharge Home Medications Fish Oil 1 ea PO QHS 06/30/15 acetaminophen [Tylenol] 650 mg PO 4X/DAY PRN PRN 06/30/15 ascorbic acid (vitamin C) [Vitamin C] 500 mg PO DAILY@0800 06/30/15 aspirin 81 mg PO DAILY@0800 06/30/15 atorvastatin 40 mg PO QHS 06/30/15 calcium carbonate 600 mg PO DAILY 06/30/15 glipizide 10 mg PO DAILY 06/30/15 glucosamine-chondroitin 1 ea PO DAILY 06/30/15 losartan 25 mg PO QHS 06/30/15 metoprolol succinate 25 mg PO DAILY 06/30/15 vitamin E 400 unit PO DAILY 06/30/15 Ferrex 150 Plus 150 mg PO DAILYCM #0 capsule 07/24/15 metformin 500 mg PO BID 12/04/21 Trulicity 0.75 mg SUBCUT QWEEK 12/05/21 polyethylene glycol 3350 [Miralax] 17 g PO DAILY PRN #119 g 12/07/21 Hospital Course Operations None Procedures None Summary of Care Provided Minutes Spent on Discharge: 32 Hospital Course: This is an 86-year-old male who presented on the with nausea vomiting and diarrhea. Over the preceding 2 months and been having intermittent issues in regards to those complaints as well as abdominal pain and distention. This time, his abdomen was much more tender and distended described as tympanic according to his family. Patient had a CAT scan that showed a partial small bowel obstruction. With that, general surgery was consulted. Patient continued to do well. And patient was started on full liquid diet on the . Tolerated that and today patient was put on regular diet which he also tolerated. Roughly 50 years ago, patient underwent an appendectomy. Patient has had intermittent spells which are concerning the patient may be having partial small bowel obstructions but this event was much worse. Patient will follow-up with to see if any surgical intervention would be necessary such as lysis of adhesions. I discussed with the patient as well as his family about this being the likely source of his abdominal pain and also explained to them that surgery would be a last resort. Patient revised to have a regular bowel regimen and to have MiraLAX as needed but that possibly may need to be scheduled depending on how his bowel regimen proceeds. Physical Exam Const alert and no apparent distress Constitutional Narrative: Hard of hearing Resp normal respiratory effort and no retractions Cardio regular rate, regular rhythm, S1 normal heart sound and S2 normal heart sound GI normal to inspection, nondistended, normoactive bowel sounds, soft to palpation and non-tender GI Narrative: Slightly distended but not taut Extremity normal to inspection Weight / BMI Weight Weight: 83.688 kg Body Mass Index (BMI) 25.0 ABG / Lab / Microbiology Data Result Diagrams: 12/07/21 05:25 12/07/21 05:25 Laboratory: Laboratory Results - last 24 hr 12/06/21 12:20: POC Glucose 208 H 12/06/21 16:36: POC Glucose 160 H 12/06/21 21:29: POC Glucose 211 H 12/07/21 05:25: WBC 8.4, RBC 3.77 L, Hgb 12.3 L, Hct 37.0 L, MCV 98.1 H, MCH 32.6 H, MCHC 33.2, RDW Std Deviation 48.8 H, RDW Coeff of Delvis 13.4, Plt Count 185, MPV 10.8, Immature Gran % (Auto) 0.500, Neut % (Auto) 60.5, Lymph % (Auto) 27.3, [place] % (Auto) 10.3 H, Eos % (Auto) 1.3, Baso % (Auto) 0.1, Absolute Neuts (auto) 5.1, Absolute Lymphs (auto) 2.30, Nucleated RBC % 0 12/07/21 05:25: Sodium 140, Potassium 3.6, Chloride 110 H, Carbon Dioxide 23.0, Anion Gap 7, BUN 13, Creatinine 0.84, Estim Creat Clear Calc 68.00, Est GFR (MDRD) Af Amer 112, Est GFR (MDRD) Non-Af 92, BUN/Creatinine Ratio 15.5, Glucose 160 H, Calcium 8.2 L 12/07/21 06:26: POC Glucose 167 H 12/07/21 11:07: POC Glucose 221 H D/C Instructions Discharge Diet: 2000 Calorie Control Diet Call your doctor if you observe: - (worsening abdominal pain. abdominal distention (tympanic). intractable nausea and vomiting. ) Meaningful Use Info Meaningful Use Diagnoses (Choose all that apply): None applicable Discharge Plan Admission Admit Date/Time: 12/05/21 04:24 Primary Reason for Your Visit: small bowel obstruction. Attending Provider: Eddi Rust Primary Care Provider: Madalyn Borden Consulting Providers: Miguel Angel Boateng Discharge Orders/Prescriptions Prescriptions: New polyethylene glycol 3350 [Miralax] 17 gram/dose powder 17 g PO DAILY PRN (Reason: constipation) Qty: 119 RF: 0 Continued losartan 50 MG tablet 25 mg PO QHS RF: 0 atorvastatin 40 MG tablet 40 mg PO QHS RF: 0 acetaminophen [Tylenol] 325 MG tablet 650 mg PO 4X/DAY PRN PRN (Reason: Pain) RF: 0 aspirin 81 MG tablet 81 mg PO DAILY@0800 RF: 0 calcium carbonate 600 MG tablet 600 mg PO DAILY RF: 0 ascorbic acid (vitamin C) [Vitamin C] 500 MG tablet 500 mg PO DAILY@0800 RF: 0 glipizide 2.5 MG tablet extended release 24hr 10 mg PO DAILY RF: 0 metoprolol succinate 25 MG tablet 25 mg PO DAILY RF: 0 glucosamine-chondroitin 1 EACH capsule 1 ea PO DAILY RF: 0 vitamin E 400 UNIT capsule 400 unit PO DAILY RF: 0 Fish Oil 1 EACH capsule 1 ea PO QHS RF: 0 Ferrex 150 Plus 150 MG capsule 150 mg PO DAILYCM Qty: 0 RF: 0 metformin 500 mg tablet extended release 24 hr 500 mg PO BID RF: 0 Trulicity 0.75 mg/0.5 mL pen injector 0.75 mg SUBCUT QWEEK RF: 0 Referrals / Follow Up: Miguel Angel Boateng MD [STAFF PHYSICIAN] - Within 1 Month Madalyn Borden DO [Primary Care Provider] - Within 2 Weeks Disposition Disposition (needs filled in before D/C Order can be placed): Home, Self Care Charges/Coding Visit Charges Inpatient E&M: 33756 Disch Hosp
--- NOTE | 2021-12-07 14:15 | CHAPLAIN ---
Type of Pastoral Visit _x__ Initial Visit ___ Follow-up Visit ___ On-call Visit ___ General Patient Visit ___ Spiritual Assessment ___ Family Conference ___ Bereavement ___ Rapid Response ___ Code Blue ___ Other (describe below) Pastoral Care Referral From ___ Patient _x__ Family ___ Nurse ___ Physician ___ Apparel Sales Leader ___ Gauge Maker ___ Other (describe below) Sacrament/Intervention _x__ Active listening ___ Anointing ___ Faith ___ Bereavement ___ Communion _x__ Alise exploration ___ _x__ Life review _x__ Prayer ___ Reconciliation ___ Sacrament of Sick ___ Supportive presence ___ Wedding ___ Other (describe below) Pastoral Comments patient is talkative and gives details about his life and servoce to others; pt has a strong alise connection and 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
[2021-12-07 14:25] VITALS: BP 126/66; PULSE 65; RESP 18; TEMP 36.9; O2SAT 98
--- NOTE | 2021-12-07 15:38 | PHA.DC.MR ---
Pharmacy Service has performed discharge medication reconciliation for this patient. The patient's discharge medication list was reviewed for discrepancies and discrepancies were resolved. Medication education papers prepared, patient discharged before this [facility] was able to diet counselor. Home Medications Fish Oil 1 ea PO QHS 06/30/15 acetaminophen [Tylenol] 650 mg PO 4X/DAY PRN PRN 06/30/15 ascorbic acid (vitamin C) [Vitamin C] 500 mg PO DAILY@0800 06/30/15 aspirin 81 mg PO DAILY@0800 06/30/15 atorvastatin 40 mg PO QHS 06/30/15 calcium carbonate 600 mg PO DAILY 06/30/15 glipizide 10 mg PO DAILY 06/30/15 glucosamine-chondroitin 1 ea PO DAILY 06/30/15 losartan 25 mg PO QHS 06/30/15 metoprolol succinate 25 mg PO DAILY 06/30/15 vitamin E 400 unit PO DAILY 06/30/15 Ferrex 150 Plus 150 mg PO DAILYCM #0 capsule 07/24/15 metformin 500 mg PO BID 12/04/21 Trulicity 0.75 mg SUBCUT QWEEK 12/05/21 polyethylene glycol 3350 [Miralax] 17 g PO DAILY PRN #119 g 12/07/21
== END 2021-12-07 15:30 | disposition home or self-care (01) | DRG 390 ==
LOC: ED 12-05 04:08 → MS3 12-05 04:29
PROVIDERS: Internal Medicine; Admitting Provider Family Medicine; Emergency Provider Emergency Medicine; PCP Family Medicine
DX: K56.600 Partial intestinal obstruction, unspecified as to cause (principal); D50.9 Iron deficiency anemia, unspecified; E11.65 Type 2 diabetes mellitus with hyperglycemia; I10 Essential (primary) hypertension; E78.5 Hyperlipidemia, unspecified; K56.7 Ileus, unspecified; K57.30 Diverticulosis of large intestine without perforation or abscess without bleeding; I25.10 Atherosclerotic heart disease of native coronary artery without angina pectoris; I25.2 Old myocardial infarction; K43.9 Ventral hernia without obstruction or gangrene; R19.7 Diarrhea, unspecified; Z79.82 Long term (current) use of aspirin; Z79.899 Other long term (current) drug therapy; Z79.84 Long term (current) use of oral hypoglycemic drugs; Z95.5 Presence of coronary angioplasty implant and graft; Z87.19 Personal history of other diseases of the digestive system; M81.0 Age-related osteoporosis without current pathological fracture; Z86.718 Personal history of other venous thrombosis and embolism
CPT/HCPCS: 36415; 74176; 80048; 80076; 82962; 83690; 83735; 84100; 85025; 97802; 99284; J7030; A4216; J2405

== ENCOUNTER 2021-12-10 10:21 | Emergency (ER) | payer MEDICARE, OTHER, SELFPAY ==
[2021-12-10 10:22] VITALS: BP 113/61; PULSE 95; RESP 18; TEMP 36.1; O2SAT 98; BMI 25.0
--- NOTE | 2021-12-10 10:39 | CT_ITS ---
STUDY: CT ABDOMEN AND PELVIS WITHOUT CONTRAST REASON FOR EXAM: Male, 86 years old. ABD PAIN -- IV PO Contrast. History of small bowel obstruction. RADIATION DOSAGE (If Supplied By Facility): CTDIvol = ( 10.61 ) mGy, DLP = ( 604.18 ) mGycm TECHNIQUE: Transaxial images were obtained from the dome of the diaphragm to the symphysis pubis without oral contrast, and without intravenous contrast. Sagittal and coronal images were reconstructed. Individualized dose optimization techniques were used for this CT. COMPARISON: Comparison is made with prior examination dated 12/05/2021. FINDINGS: Stable mild degree of increased linear markings at the lung bases suggestive of mild atelectasis. There has been improvement as compared to prior study. Coronary artery calcification. Normal liver. Normal gallbladder and extrahepatic biliary system. Normal spleen. Normal pancreas. Normal bilateral adrenal glands. Normal right kidney. Normal left kidney. Stable small bilateral parapelvic cysts. Normal visualized stomach. There is no evidence of small bowel dilatation at this time. There are multiple colonic diverticula consistent with diverticulosis. Residual oral contrast is seen in the rectosigmoid colon from prior recent CT scan. There are surgical clips in the region of the appendix consistent with a prior appendectomy. There is diffuse atherosclerotic calcification of the abdominal aorta and the major visceral branches, without a demonstrated aneurysm. Normal inferior vena cava. Normal retroperitoneum. Normal urinary bladder. There is enlargement of the prostate gland. This causes indentation at the bladder base. Normal abdominal wall. There are diffuse degenerative changes of the visualized lumbar spine. CT/Abdomen/Pel W ORAL Cont Only IMPRESSION: No evidence of small bowel dilatation at this time. The remainder of the examination is unchanged. Electronically Signed: Joe Cast MD at 12:59 EDT ,
--- NOTE | 2021-12-10 10:41 | EDS_ITS ---
HPI HPI - GI History of Present Illness Chief Complaint: Abd Pain Informant: patient and family Abdominal Pain/Flank Pain Onset: Today and Hours Context: Gradual Onset Timing: Continuous Location: Diffuse Current Severity: Mild Maximum Severity: Moderate Worsened by: Nothing Relieved by: Nothing Nausea/Vomiting/Emesis GI Symptom: Positive for Nausea and Vomiting Onset: Today Severity: Mild Diarrhea/Melena/Hematochezia GI Symptom: Negative for Diarrhea, Melena and Hematochezia Associated Symptoms Associated Symptoms: Negative for Dysuria, Frequency, Hematuria and Urgency Narrative Narrative: 86-year-old male prior appendectomy. History of diabetes, CAD and hypertension. Last Tuesday patient presented to emergency department was diagnosed with a partial small bowel obstruction and was admitted to the hospital and was discharged on Tuesday. He did not need surgery. He had never had a small bowel obstruction before. States that this morning he woke up with abdominal discomfort nausea and vomiting around 5 AM. Denies any fever or chills. No dysuria. No difficulty urinating. He did have a very small bowel movement today. Prior similar symptoms: Yes Recent Illness/Hospitalization: Yes [facility] Medical History (Updated 12/10/21 @ 10:[address] Ponce Dunn MD) Coronary artery disease Diabetes DVT (deep venous thrombosis) Hypertension Myocardial infarct Osteoporosis SBO (small bowel obstruction) Home Medications Fish Oil 1 ea PO QHS 06/30/15 [History Last Taken Unknown] acetaminophen [Tylenol] 650 mg PO 4X/DAY PRN PRN 06/30/15 [History Last Taken 07/14/15] ascorbic acid (vitamin C) [Vitamin C] 500 mg PO DAILY@0800 06/30/15 [History Last Taken Unknown] aspirin 81 mg PO DAILY@0800 06/30/15 [History Last Taken Unknown] atorvastatin 40 mg PO QHS 06/30/15 [History Last Taken 07/13/15] calcium carbonate 600 mg PO DAILY 06/30/15 [History Last Taken Unknown] glipizide 10 mg PO DAILY 06/30/15 [History Last Taken 07/13/15] glucosamine-chondroitin 1 ea PO DAILY 06/30/15 [History Last Taken Unknown] losartan 25 mg PO QHS 06/30/15 [History Last Taken 07/13/15] metoprolol succinate 25 mg PO DAILY 06/30/15 [History Last Taken 11/30/15] vitamin E 400 unit PO DAILY 06/30/15 [History Last Taken Unknown] Ferrex 150 Plus 150 mg PO DAILYCM #0 capsule 07/24/15 [Rx Last Taken Unknown] metformin 500 mg PO BID 12/04/21 [History Last Taken Unknown] Trulicity 0.75 mg SUBCUT QWEEK 12/05/21 [History Last Taken Unknown] polyethylene glycol 3350 [Miralax] 17 g PO DAILY PRN #119 g 12/07/21 [Rx Last Taken Unknown] ondansetron 4 mg PO Q6H PRN #7 tab 12/10/21 [Rx Last Taken Unknown] Allergy/AdvReac Type Severity Reaction Status Date / Time Iodinated Contrast Media [CT] Allergy Hives Verified 12/10/21 10:22 Penicillins Allergy Hives Verified 12/10/21 10:22 Sulfa (Sulfonamide Allergy Itching Verified 12/10/21 10:22 Antibiotics) Family History Other Diabetes Surgical History History of appendectomy History of bilateral knee replacement History of coronary artery stent placement Social History Smoking Status: Never smoker ROS ROS ED ROS Narrative Abdominal pain, bloating, nausea vomiting. Review of Systems ROS Unobtainable: Denies due to encephalopathy Constitutional Constitutional ED: Denies fever(s) or subjective ENT ENT ED: Denies ear pain or rhinorrhea Cardiovascular Cardiovascular: Denies chest pain or palpitations Respiratory/Chest Respiratory/Chest: Denies cough or dyspnea Gastrointestinal Gastrointestinal: Reports abdominal pain, nausea and vomiting; Denies constipation, diarrhea or melena Genitourinary Genitourinary ED: Denies dysuria or hematuria Musculoskeletal Musculoskeletal: Denies myalgias Integumentary Denies rash Neurologic Neurologic: Denies headache(s) Psychiatric Psychiatric: Denies depression Endocrine Endocrinology: Denies polyuria Hematologic/Lymphatic Hematologic/Lymphatic: Denies easy bruising Allergic/Immunologic Allergic/Immunologic ED: Denies urticaria EXAM Physical Exam Narrative Exam Narrative: 86-year-old male no acute distress. Vital signs stable afebrile. Family at bedside. H EENT exam unremarkable. Neck nontender. Lungs are clear. Heart regular rhythm no murmur. Abdomen distended. Soft. No peritoneal signs. Diffusely tender. Bowel sounds are present. No obvious hernia. No mass. Moving all 4 extremities. Neurologically is awake and alert. No focal motor deficits. Const Vital Signs: 12/10/21 10:22 Temperature 97.0 F L Temperature Source Temporal Pulse Rate 95 Respiratory Rate 18 Blood Pressure 113/61 Blood Pressure Mean 78 Pulse Ox 98 Oxygen Delivery Method Room Air Positive well nourished and well developed; Negative for obese, cachectic, contractures or unkempt General Appearance ED: well developed and NAD; Negative for unkempt, cachectic, contractures or pallor Nutritional Appearance: Negative for cachectic or obese HEENT Reports moist mucous membranes normocephalic and atraumatic Eyes PERRL and EOMs intact bilaterally Neck no lymphadenopathy, supple and no JVD General: Negative for tenderness Resp normal respiratory effort and clear to auscultation bilaterally Auscultation: Negative for rales, rhonchi or wheezes Cardio regular rate, regular rhythm, S1 normal heart sound, S2 normal heart sound and no murmurs GI no masses; Negative for non-tender or non-distended Inspection: abdominal distention Auscultation: normoactive bowel sounds Palpation: soft and tender; Negative for guarding, rigid or rebound tenderness present Back/Spine no CVA tenderness General Back: Negative for CVA tenderness Extremity full ROM General Extremety ED: Negative for edema or tenderness General Extremity: Negative for edema Neuro moves all extremities Sensorium / Orientation: alert, oriented to person, oriented to place and oriented to time; Negative for orientation impaired, confused, lethargic or stuporous Motor Exam: strength 5/5 throughout Psych mental status grossly normal and thought process normal Appearance: Negative for unkempt Skin no wounds General Skin Exam: Negative for jaundice or pallor Lesions: no lesions Rashes: no rashes MDM MDM MDM Narrative Medical decision making narrative: 86-year-old male with recent partial small bowel obstruction presents with similar symptoms. He will be treated with IV morphine and Zofran. IV fluids. CAT scan and labs pending. Repeat exam patient pain and nausea has improved since he was given morphine and Zofran. Awaiting his CAT scan. Patient doing well at 1 PM. Went over all his test results with he and family he will be discharged to home. Zofran for nausea. Follow-up with his doctor. Lab Data Attestation: I reviewed the patient's lab results. Lab results narrative: CBC she is awake 11.7. H&H 13 and 41. Platelets 200. Electrolytes show a gap of 6 normal BUN and creatinine of 17 and 1. Glucose 202. Liver enzymes are unremarkable. Lipase is 14. UA shows no nitrites nor any white or red cells and only 1+ bacteria. No infection. CAT scan no bowel obstruction no acute abnormalities read by the radiologist. Reviewed by me . Labs: Laboratory Results - last 24 hr 12/10/21 12/10/21 12/10/21 10:45 10:45 11:45 WBC 11.7 H RBC 4.15 L Hgb 13.8 Hct 41.0 MCV 98.8 H MCH 33.3 H MCHC 33.7 RDW Std Deviation 50.1 H RDW Coeff of Delvis 13.7 Plt Count 200 MPV 10.4 Immature Gran % (Auto) 0.400 Neut % (Auto) 79.8 H Lymph % (Auto) 12.8 L Taney % (Auto) 6.5 Eos % (Auto) 0.3 Baso % (Auto) 0.2 Absolute Neuts (auto) 9.4 H Absolute Lymphs (auto) 1.50 Nucleated RBC % 0 Sodium 139 Potassium 5.1 Chloride 109 H Carbon Dioxide 24.0 Anion Gap 6 BUN 17 Creatinine 1.02 Estim Creat Clear Calc 56.00 Est GFR (MDRD) Af Amer 89 Est GFR (MDRD) Non-Af 73 BUN/Creatinine Ratio 16.7 Glucose 202 H Calcium 9.1 Total Bilirubin 1.40 H AST 29 ALT 20 Alkaline Phosphatase 82 Total Protein 6.9 Albumin 3.1 L Globulin 3.8 Albumin/Globulin Ratio 0.8 L Lipase 14 L Urine Color Yellow Urine Clarity Sl. Cloudy Urine pH 5.0 Ur Specific Arthur 1.025 Urine Protein 30 H Urine Glucose (UA) 250 H Urine Ketones 15 H Urine Occult Blood Negative Urine Nitrite Negative Urine Bilirubin 1 H Urine Urobilinogen 1 H Ur Leukocyte Esterase 25 H Urine RBC 0 SEEN Urine WBC 0-5 SEEN Ur Squamous Epith Cells 0-5 SEEN Urine Bacteria 1+ Urine Mucus 2+ Radiography Diagnostic Testing: Clinical Impression(s) from Imaging Studies Abdomen CT 12/10/21 10:39 IMPRESSION: No evidence of small bowel dilatation at this time. The remainder of the examination is unchanged. Electronically Signed: Joe Cast MD at 12:59 EDT , Discharge Plan Triage Chief Complaint: Abd Pain ED Provider: Ponce Dunn Dx/Rx/DC Orders Clinical Impression: Abdominal pain, Type II diabetes mellitus, Hypertension, Coronary artery disease Prescriptions: New ondansetron 4 mg tablet,disintegrating 4 mg PO Q6H PRN (Reason: nausea and vomiting) Qty: 7 RF: 0 No Action losartan 50 MG tablet 25 mg PO QHS RF: 0 atorvastatin 40 MG tablet 40 mg PO QHS RF: 0 acetaminophen [Tylenol] 325 MG tablet 650 mg PO 4X/DAY PRN PRN (Reason: Pain) RF: 0 aspirin 81 MG tablet 81 mg PO DAILY@0800 RF: 0 calcium carbonate 600 MG tablet 600 mg PO DAILY RF: 0 ascorbic acid (vitamin C) [Vitamin C] 500 MG tablet 500 mg PO DAILY@0800 RF: 0 glipizide 2.5 MG tablet extended release 24hr 10 mg PO DAILY RF: 0 metoprolol succinate 25 MG tablet 25 mg PO DAILY RF: 0 glucosamine-chondroitin 1 EACH capsule 1 ea PO DAILY RF: 0 vitamin E 400 UNIT capsule 400 unit PO DAILY RF: 0 Fish Oil 1 EACH capsule 1 ea PO QHS RF: 0 Ferrex 150 Plus 150 MG capsule 150 mg PO DAILYCM Qty: 0 RF: 0 metformin 500 mg tablet extended release 24 hr 500 mg PO BID RF: 0 Trulicity 0.75 mg/0.5 mL pen injector 0.75 mg SUBCUT QWEEK RF: 0 polyethylene glycol 3350 [Miralax] 17 gram/dose powder 17 g PO DAILY PRN (Reason: constipation) Qty: 119 RF: 0 Primary Care Provider: Madalyn Borden Referrals: Madalyn Borden DO [Primary Care Provider] - 3-5 Days Activity Restrictions/Additional Instructions: Plenty of fluids and rest. Follow-up with your doctor to ensure you are improving. Today no signs of a bowel obstruction. Return if increasing abdominal pain or intractable vomiting or feeling worse. Zofran as needed for nausea. Disposition Disposition: Home, Self Care
[2021-12-10] MEDS: 0.9% Normal Saline 1,000 ML 125 ML IV (10:47)
[2021-12-10] MEDS: Ondansetron 4 MG/2 ML Vial IV (10:47)
[2021-12-10] MEDS: morphine 8 MG/ML Syringe 6 MG IV (10:47)
[2021-12-10 10:56] LABS: Absolute Neutrophil Count 9.4 X10^3/uL (2.0-7.7); Basophil# 0.02 X10^3/uL; Basophil% 0.2 % (0-1); Eosinophil# 0.03 X10^3/uL; Eosinophils% 0.3 % (0-5); Hemoglobin 13.8 g/dL (13.0-16.5); Lymphocyte % 12.8 % (19-41); Mean Corp Hgb Conc 33.7 g/dL (32-36); Mean Corpuscular Hgb 33.3 pg (27.0-32.0); Mean Corpuscular Volume 98.8 fL (80-94); Mean Platelet Vol. 10.4 fl (6.2-12.0); Monocyte# 0.76 X10^3/uL; Monocyte% 6.5 % (0-10); NRBC Flagged by Analyzer 0 % (0-5); Neutrophil # 9.36 X10^3/uL (2.7-7.7); Neutrophil % 79.8 % (47-70); Platelet Count 200 K/mm3 (150-450); RBC Distribution Width CV 13.7 % (11.6-14.6); RBC Distribution Width SD 50.1 fl (35.1-43.9); Red Blood Count 4.15 M/mm3 (4.6-6.2); White Blood Count 11.7 K/mm3 (4.4-11.0)
[2021-12-10 11:17] LABS: ALB/GLOB Ratio 0.8 RATIO (0.9-2.4); AST(SGOT) 29 U/L (15-37); Alanine Aminotransfer ALT/SGPT 20 U/L (16-61); Albumin, Serum 3.1 g/dL (3.2-5.0); Alkaline Phosphatase 82 U/L (45-117); Anion Gap 6 (5-15); BUN 17 mg/dL (7-18); BUN/Creat Ratio 16.7 RATIO (10-20); Calcium,Total 9.1 mg/dL (8.5-10.1); Chloride 109 mmol/L (98-107); Creatinine, Serum 1.02 mg/dL (0.70-1.30); EST Glomerular Filtration Rate 73 mL/min (>60); Est Glom Filt Rate - Afr Amer 89 mL/min (>60); Globulin 3.8 g/dL (2.2-4.2); Glucose 202 mg/dL (74-106); Lipase 14 U/L (73-393); Potassium 5.1 mmol/L (3.5-5.1); Protein, Total 6.9 g/dL (6.4-8.2); Sodium Level 139 mmol/L (136-145)
[2021-12-10 11:47] LABS: Red Blood Cells-Urine 0 SEEN /hpf (0-5)
[2021-12-10 11:49] LABS: Color, Urine Yellow (Yellow); Glucose, Dipstick 250 mg/dl (Normal); Ketone-Dipstick 15 mg/dl (Negative); Leukocyte Esterase-Dipstick 25 /ul (Negative); Nitrite-Dipstick Negative (Negative); Occult Blood-Urine Negative /ul (Negative); Protein-Dipstick 30 mg/dl (Negative); Specific Gravity, Urine 1.025 (1.002-1.030); Urine Clarity Sl. Cloudy (Clear); Urine Urobilinogen 1 mg/dl (Normal)
[2021-12-10 11:50] LABS: Urine Bilirubin Dipstick 1 mg/dL (Negative)
[2021-12-10 11:56] LABS: Bacteria 1+ /hpf (None Seen); Mucous, Urine 2+ /hpf (<or=2+); Squamous Epithelial Cells - UA 0-5 SEEN /hpf (0-5); White Blood Cells 0-5 SEEN /hpf (0-5)
[2021-12-10 13:21] VITALS: BP 127/59; PULSE 69
== END 2021-12-10 13:22 | disposition home or self-care (01) ==
PROVIDERS: Emergency Provider Emergency Medicine; PCP Family Medicine; Visit Provider Emergency Medicine
DX: R10.9 Unspecified abdominal pain (principal); E11.9 Type 2 diabetes mellitus without complications; R11.2 Nausea with vomiting, unspecified; I25.10 Atherosclerotic heart disease of native coronary artery without angina pectoris; I10 Essential (primary) hypertension; Z87.19 Personal history of other diseases of the digestive system; Z86.718 Personal history of other venous thrombosis and embolism; I25.2 Old myocardial infarction; M81.0 Age-related osteoporosis without current pathological fracture; Z79.82 Long term (current) use of aspirin; Z79.899 Other long term (current) drug therapy; Z79.84 Long term (current) use of oral hypoglycemic drugs; Z95.5 Presence of coronary angioplasty implant and graft
CPT/HCPCS: 74176; 80053; 81001; 83690; 85025; 96361; 96374; 96375; 99284; J7030; A4216; J2405

== ENCOUNTER 2022-03-12 13:58 | Outpatient (CLI) | payer MEDICARE, OTHER, SELFPAY | END 2022-03-12 23:59 | disposition home or self-care (01) | LOC: PSN 13:58 | PROVIDERS: PCP Family Medicine | DX: Z01.818 Encounter for other preprocedural examination (principal); K22.5 Diverticulum of esophagus, acquired | CPT/HCPCS: 87635; C9803; U0003; U0005 ==